=== PATIENT | male | born 1955 | race Caucasian/White ===

== ENCOUNTER 2024-03-03 08:58 | Inpatient (IN) | payer OTHER, SELFPAY ==
[2024-02-25 08:57] LABS: Hematocrit 45.6 % (39.0-52.0); Hemoglobin 15.2 g/dL (13.0-18.0); Mean Corp Hgb Conc. 33.3 g/dL (33.0-37.0); Mean Corpuscular Hgb 30.8 pg (27.0-31.0); Mean Corpuscular Volume 92.3 fL (80.0-94.0); Mean Platelet Volume 10.2 fL (7.4-10.4); Platelet Count 290 10^3/uL (130-400); Red Blood Cell Count 4.94 10^6/uL (4.70-6.10); Red Cell Dist. Width 13.2 % (11.5-14.5); White Blood Cell Count 7.8 10^3/uL (4.8-10.8)
[2024-02-25 09:05] LABS: INR 1.01; PT 13.6 Sec (11.4-14.6)
[2024-02-25 09:06] LABS: APTT 30.3 Sec (23.4-35.0)
[2024-02-25 09:39] LABS: Blood Urea Nitrogen 15 mg/dl (9-20); Calcium 9.5 mg/dl (8.4-10.2); Carbon Dioxide 30 mmol/L (22-30); Chloride 98 mmol/L (98-107); Glucose 98 mg/dl (70-99); Potassium 4.3 mmol/L (3.5-5.1); Sodium 138 mmol/L (135-145); eGFR > 60.00
[2024-02-25 13:35] VITALS: BMI 35.5
[2024-03-03] VITALS (12 sets, daily range): BP systolic 109–171; BP diastolic 66–98; BMI 35.5
[2024-03-03] MEDS: NEBCIN 480 MG/100 ML ENEMA 1 BOTTLE RECTAL (09:07)
[2024-03-03] MEDS: NORMOSOL-R/PLASMALYTE-A 1000 IV ×2 (09:08→16:11)
[2024-03-03] MEDS: TRANSDERM-SCOP 1 PATCH TRANSDERM (09:14)
[2024-03-03] MEDS: EMEND 40 MG PO (09:14)
--- NOTE | 2024-03-03 12:51 | W.IMMPOSTOP ---
Surgical Immed Post Op Note
-
Primary Surgeon: Naun
Assisting Surgeon: Eamon
Pre-op Diagnosis: prostate cancer/BPH
Post-op Diagnosis: same
Procedure Performed: Radical perineal prostatectomy, extensive bladder neck reconstruction
Anesthesia Type: GET
Specimen / Cultures: prostate, median lobe; bladder neck and urethral margin for ozen section
Estimated Blood Loss: 400 ml
Complications: None
Operative Findings: median lobe and dense fascia posterior to bladder neck
[2024-03-03 13:31] LABS: Hematocrit 42.2 % (39.0-52.0); Hemoglobin 14.4 g/dL (13.0-18.0)
[2024-03-03 13:54] LABS: Blood Urea Nitrogen 16 mg/dl (9-20); Calcium 7.9 mg/dl (8.4-10.2); Carbon Dioxide 24 mmol/L (22-30); Chloride 99 mmol/L (98-107); Estimated Creatinine Clearance > 125 ml/min; Glucose 145 mg/dl (70-99); Potassium 4.2 mmol/L (3.5-5.1); Sodium 135 mmol/L (135-145); eGFR > 60.00
--- NOTE | 2024-03-03 14:40 | PTCARENOTE ---
Pt received from the PACU via bed. Transport was w/o incident. Pt is AAOx3, HRR, lungs are clear, resp. easy. VSS, Pt is afebrile. Pt denies pain or nausea at this time. Pt's dressing to perineum is with bloody drainage. Pt w/timbo drain, and
drainage is to be expected. Will reinforce or change as needed/ordered. Polk draining blue/yellow urine without diff. Pt instructed on plan of care. Pt verbalized understanding of instructions. Call navarro is within reach.
[2024-03-03] MEDS: TORADOL IV (15:50)
[2024-03-03] MEDS: COLACE 100 MG PO (16:29)
[2024-03-03] MEDS: TORADOL 15 MG IV (17:52)
[2024-03-03] MEDS: POLYSPORIN/DOUBLE ANTIBIOTIC 1 APPLIC TOPICAL (21:01)
[2024-03-03] MEDS: LIPITOR 10 MG PO (22:05)
[2024-03-04] MEDS: TORADOL 15 MG IV ×3 (00:18→12:49)
[2024-03-04 03:45] VITALS: BP 122/69
--- NOTE | 2024-03-04 03:46 | DOWNTIME ---
There was a [employer]ation Worker Downtime on 03/04/2024 from 0100 to 03/04/2023 at 0205 . Downtime documentation of patient's care, including medication administrations, has been reconciled in the electronic record per guidelines. Refer to the
patient's paper chart under the miscellaneous tab to see printed paper medication records and downtime forms.
[2024-03-04] MEDS: NORMOSOL-R/PLASMALYTE-A 1000 IV ×2 (05:23→16:41)
[2024-03-04 07:30] VITALS: BP 130/64
[2024-03-04 08:13] LABS: Hematocrit 35.2 % (39.0-52.0); Hemoglobin 12.2 g/dL (13.0-18.0); Mean Corp Hgb Conc. 34.7 g/dL (33.0-37.0); Mean Corpuscular Volume 89.3 fL (80.0-94.0); Mean Platelet Volume 10.3 fL (7.4-10.4); Platelet Count 260 10^3/uL (130-400); Red Blood Cell Count 3.94 10^6/uL (4.70-6.10); Red Cell Dist. Width 12.9 % (11.5-14.5); White Blood Cell Count 14.3 10^3/uL (4.8-10.8)
[2024-03-04] MEDS: BENICAR 40 MG PO (08:15)
[2024-03-04] MEDS: MAGNESIUM OXIDE 250 MG PO (08:16)
[2024-03-04] MEDS: ZYLOPRIM 300 MG PO (08:16)
[2024-03-04] MEDS: POLYSPORIN/DOUBLE ANTIBIOTIC 1 APPLIC TOPICAL ×2 (08:16→22:31)
[2024-03-04] MEDS: COLACE 100 MG PO (08:16)
[2024-03-04] MEDS: NORVASC 5 MG PO (08:16)
[2024-03-04 08:48] LABS: Blood Urea Nitrogen 16 mg/dl (9-20); Calcium 8.2 mg/dl (8.4-10.2); Carbon Dioxide 28 mmol/L (22-30); Chloride 97 mmol/L (98-107); Estimated Creatinine Clearance 117 ml/min; Glucose 120 mg/dl (70-99); Potassium 4.2 mmol/L (3.5-5.1); Sodium 133 mmol/L (135-145); eGFR > 60.00
--- NOTE | 2024-03-04 09:25 | W.PN.SURGUPD ---
Addendum entered and electronically signed by Adama Magallon MD 03/10/24 09:57:
The patient's anemia is due to the expected surgical acute blood loss
Original Note:
Surgical Update
Surgical Update
Stable 1 day s/p radical perineal prostatectomy with extensive bladder neck reconstruction
Afeb
VSS
Tolerating regular diet
Passing flatus
Polk draining minimally blood tinge urine
Dressing with bloody drainage, no evidence of urine extravasation
[2024-03-04] MEDS: LEVAQUIN 100 IV (09:55)
[2024-03-04] MEDS: NORMOSOL-R/PLASMALYTE-A IV ×2 (11:05→21:40)
--- NOTE | 2024-03-04 12:00 | CM ---
Patient seen at bedside with
IA completed. Case managment consult completed VN-options discussed prefers [facility]-referral entered in [facility]
Patient lives here in [place], [place] as well as [place].
2 story home, no steps to enter flight to second floor
PLOF: Independent
DME: CPAP
Denies HH/has had outpatient rehab in [place]
Denies insecurities
PCP: Dr. Holli Santos[facility] [phone]
Pharmacy: [facility], [address], [place]
PLAN: home in [place] with [facility]
to transport
--- NOTE | 2024-03-04 13:18 | VNURNOTE ---
Home Health Liaison met with patient at bedside to discuss [facility] nurse/therapy, visits, schedule and homebound status. Patient is agreeable and understands that visits at home will be 2-3 x per week to assess and teach medical and raya management.
[facility] brochure provided with contact information. Patient is aware that [facility] will contact them for start of care in 1-2 days after discharge from .
[facility] referral accepted in [facility].
[2024-03-04 15:10] VITALS: BP 134/70
[2024-03-04] MEDS: TORADOL IV (21:41)
[2024-03-04] MEDS: LIPITOR 10 MG PO (22:31)
[2024-03-04 23:34] VITALS: BP 147/103
--- NOTE | 2024-03-05 05:32 | PTCARENOTE ---
03/04: commissioned police officer urology Dr. Walls made aware timbo drain was dislodged. No new orders at this time.
[2024-03-05 07:30] VITALS: BP 151/87
--- NOTE | 2024-03-05 09:06 | PN.CDI ---
CDI
- -
CDI:
Physician Documentation Request
Admit Date: 03/03/24 08:58
Dear Doctor Naun,
Patient admitted with prostate cancer s/p radical perineal prostatectomy, bladder neck reconstruction.
03/03 Surgical Op Report, 'Estimated Blood Loss: 400 ml.'
Hgb levels documented below:
Laboratory Tests
02/25/24 03/03/24 03/04/24
07:16 13:20 07:01
Hgb 15.2 14.4 12.2 L
Based on the above, please clarify in your note which is the most likely diagnosis you are evaluating, monitoring and/or treating?
Acute blood loss anemia
Insignificant abnormal lab finding
Other
Use of terms such as suspected, likely, concern for, or probable (associated with a specific diagnosis that is being evaluated, monitored, or treated as if it exists) are acceptable and can be coded in the inpatient setting, when documented at the
time of discharge.
Thank you,
Kiara WEEKS,RN,CCDS
CDI Specialist
Available via [facility] text
Please use your independent medical judgment in providing your response.
[2024-03-05] MEDS: LEVAQUIN 100 IV (09:33)
[2024-03-05] MEDS: POLYSPORIN/DOUBLE ANTIBIOTIC 1 APPLIC TOPICAL (09:33)
[2024-03-05] MEDS: BENICAR 40 MG PO (09:35)
[2024-03-05] MEDS: ZYLOPRIM 300 MG PO (09:35)
[2024-03-05] MEDS: MAGNESIUM OXIDE 250 MG PO (09:35)
[2024-03-05] MEDS: COLACE 100 MG PO (09:35)
[2024-03-05] MEDS: NORVASC 5 MG PO (09:36)
--- NOTE | 2024-03-05 10:27 | W.DS.TRANS ---
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
-
Discharge Instructions:
Instructions:
Stand-Alone Forms:
Changes to Home Medications: No
Discharge Medications:
DC Medications w/original date entered in [employer]
allopurinol 300 mg tablet 300 mg PO DAILY Gout 02/26/24
amlodipine 5 mg tablet 5 mg PO DAILY Blood Pressure 02/26/24
atorvastatin 10 mg tablet 10 mg PO HS High Cholesterol 02/26/24
magnesium 200 mg tablet 300 mg PO DAILY Supplement 02/26/24
multivitamin 1 tab PO DAILY Supplement 02/26/24
olmesartan 40 mg tablet (Benicar) 40 mg PO DAILY Blood Pressure 02/26/24
Home Medication Changes
Pending Results: No
--- NOTE | 2024-03-05 10:50 | CM ---
Pt for discharge today
[facility] to follow
Has ride home -
Given IMM
Plan - home with [facility]
[2024-03-05 13:20] VITALS: BP 116/69
== END 2024-03-05 14:44 | disposition home health service (06) | DRG 707 ==
LOC: 2 SOUTH 08:58
PROVIDERS: ADMITTING PHYSICIAN Specialist
PROC: 0TBC0ZX Excision of Bladder Neck, Open Approach, Diagnostic (ICD-10-PCS; 2024-03-03)
PROC: 0VT30ZZ Resection of Bilateral Seminal Vesicles, Open Approach (ICD-10-PCS; 2024-03-03)
PROC: 0VB00ZX Excision of Prostate, Open Approach, Diagnostic (ICD-10-PCS; 2024-03-03)
PROC: 0VT00ZZ Resection of Prostate, Open Approach (ICD-10-PCS; 2024-03-03)
PROC: 0VTQ0ZZ Resection of Bilateral Vas Deferens, Open Approach (ICD-10-PCS; 2024-03-03)
PROC: 0TQC0ZZ Repair Bladder Neck, Open Approach (ICD-10-PCS; 2024-03-03)
PROC: 0TBD0ZX Excision of Urethra, Open Approach, Diagnostic (ICD-10-PCS; 2024-03-03)
DX: C61 Malignant neoplasm of prostate (principal); D62 Acute posthemorrhagic anemia; N99.71 Accidental puncture and laceration of a genitourinary system organ or structure during a genitourinary system procedure; I10 Essential (primary) hypertension; E78.00 Pure hypercholesterolemia, unspecified; I73.9 Peripheral vascular disease, unspecified; K21.9 Gastro-esophageal reflux disease without esophagitis; Z79.899 Other long term (current) drug therapy
CPT/HCPCS: 88305; 88309; 88332; 36415; 80048; 85014; 85018; 85027; 85610; 85730; 86850; 86900; 86901; 88331; 93005; A4648

== ENCOUNTER → 2024-06-03 07:10 | Outpatient (REF) | payer OTHER, SELFPAY ==
[2024-06-03 09:13] LABS: PSA, Total - Diagnostic < 0.06 ng/ml (0.0-4.0)
== END ==
LOC: REG 07:10
PROVIDERS: ATTENDING PHYSICIAN Specialist
DX: C61 Malignant neoplasm of prostate (principal)
CPT/HCPCS: 36415; 84153

== ENCOUNTER → 2024-09-15 07:08 | Outpatient (REF) | payer OTHER, SELFPAY ==
[2024-09-15 08:49] LABS: PSA, Total - Diagnostic < 0.06 ng/ml (0.0-4.0)
== END ==
LOC: REG 07:08
PROVIDERS: ATTENDING PHYSICIAN Specialist
DX: C61 Malignant neoplasm of prostate (principal)
CPT/HCPCS: 36415; 84153

== ENCOUNTER → 2025-01-25 14:18 | Outpatient (REF) | payer OTHER, SELFPAY ==
[2025-01-25 16:01] LABS: PSA, Total - Diagnostic < 0.06 ng/ml (0.0-4.0)
== END ==
LOC: REG 14:18
PROVIDERS: ATTENDING PHYSICIAN Specialist
DX: C61 Malignant neoplasm of prostate (principal)
CPT/HCPCS: 36415; 84153